=== PATIENT | female | born 1980 | race Caucasian/White ===

== ENCOUNTER 2021-12-13 06:00 | Day surgery (SDC) | payer MEDICAID ==
[~2021-12-13] VITALS: Ht 157.5 cm; Wt 59.0 kg
[2021-12-13 07:20] LABS: HCG,QUAL RESULT NEGATIVE (NEGATIVE)
[2021-12-13] MEDS ORDERED: ACETAMINOPHEN I.V. 1000 MG 100 ML IV ONE (07:46)
[2021-12-13] MEDS ORDERED: SUGAMMADEX SODIUM 200 MG/2 ML VIAL IV ONE (08:00)
[2021-12-13] MEDS ORDERED: NS 1000 ML IV.SOLN IV ONE (08:00)
[2021-12-13] MEDS ORDERED: MIDAZOLAM HCL 5 MG/5 ML VIAL IVP ONE (08:00)
[2021-12-13] MEDS ORDERED: ROCURONIUM BROMIDE 10 MG/ML (ZEMURON) IV ONE (08:00)
[2021-12-13] MEDS ORDERED: fentaNYL CITRATE 250 MCG/5 ML AMP IV ONE (08:00)
[2021-12-13] MEDS ORDERED: WATER FOR IRRIGATION,STERILE 1,000 ML IRRIG.SOLN IR ONE (08:00)
[2021-12-13] MEDS ORDERED: LIDOCAINE 2%, 20 ML MDV INJ ONE (08:00)
[2021-12-13] MEDS ORDERED: DESFLURANE 15 MIN GAS INH ONE (08:00)
[2021-12-13] MEDS ORDERED: ONDANSETRON HCL 4 MG/2 ML VIAL IVP ONE (08:00)
[2021-12-13] MEDS ORDERED: LR 1,000 ML IV.SOLN IV ONE (08:00)
[2021-12-13] MEDS ORDERED: DEXAMETHASONE SOD PHOSPHATE 4 MG/ML VIAL IVP ONE (08:00)
[2021-12-13] MEDS ORDERED: HYDROmorphone 1 MG/ML INJ. CARTRIDGE IVP PRN ×2 (08:45)
[2021-12-13] MEDS ORDERED: METOCLOPRAMIDE HCL 10 MG/2 ML VIAL IVP PRN (08:45)
[2021-12-13] MEDS ORDERED: MIDAZOLAM HCL 2 MG/2 ML VIAL (VERSED) IVP PRN (08:45)
[2021-12-13] MEDS ORDERED: MEPERIDINE HCL/PF 25 MG/ML DISP.SYRIN IVP PRN (08:45)
[2021-12-13] MEDS ORDERED: LR 1,000 ML IV SCH (08:45)
[2021-12-13 11:41] VITALS: BP_SYST 115
== END 2021-12-13 11:35 | disposition home or self-care (01) ==
LOC: SDS 06:00 → SMU 06:00 → SDS 11:35
PROVIDERS: ATTEND Otolaryngology
DX: J34.89 Other specified disorders of nose and nasal sinuses (principal); J34.2 Deviated nasal septum; J34.3 Hypertrophy of nasal turbinates; E03.9 Hypothyroidism, unspecified; J30.1 Allergic rhinitis due to pollen; Z20.822 Contact with and (suspected) exposure to COVID-19
CPT/HCPCS: 36415; 30520; 30140; 84703; 88305; 88311; U0003; J3490; J1100; J2001; J2250; J2405; J3010; J7120; J7030; J0131; 88304